=== PATIENT | female | born 1980 | race Caucasian/White ===

== ENCOUNTER 2017-04-11 11:55 | Day surgery (SDC) | payer OTHER ==
[2017-04-11] MEDS ORDERED: LIDOCAINE 1% 300 MG/30 ML SDV ONE (12:45)
[2017-04-11] MEDS ORDERED: LIDOCAINE 1% 300 MG/30 ML SDV MISC ONE (13:15)
--- NOTE | 2017-04-11 14:19 | GPN ---
[f rep st] PROCEDURE NOTE DATE OF PROCEDURE: 04/11/2017 PROCEDURE PERFORMED: Implantable loop recorder. INDICATION: Syncope without prodrome, resulting in facial trauma. CLINICAL HISTORY: The patient is a pleasant 37-year-old female with a history of syncopal episode s uggestive of vasovagal syncope; however, she recently had a syncopal event without prodrome, resulti ng in facial trauma. She subsequently was arranged for an implantable loop recorder. Her workup to date has been unremarkable, including a Holter monitor. DESCRIPTION OF PROCEDURE: After risks and benefits of the procedure were discussed with the patient , consents were obtained. Once consents were obtained, procedure was initiated. Patient was preppe d and draped in sterile fashion after locating 5th intercostal space 2 cm to the left of midline. A alma rosa was made at this surgical site. Patient was prepped and draped in a sterile fashion. 1% lido jose was used to anesthetize the skin locally. Once the appropriate level of anesthesia on the zechariah face of the skin was attained, incision was made with the scalpel provided by the [employer] ble loop recorder kit. Incision was modified with a scalpel blade. The implantable loop recorder t ract was made, and was injected under the skin without complication. Site was closed with Steri-Str ips. Hemostasis was obtained. Device was checked post procedure, demonstrating capture of good QRS complex and P waves. The patient tolerated the procedure well without complaints. CONCLUSION: 1. Successful implantable loop recorder deployment. 2. Patient will follow up in the office in 1 week for wound and device check. /[id number]/MODL
== END 2017-04-11 14:30 | disposition home or self-care (01) ==
LOC: FCATH 11:55
PROVIDERS: ATTEND Internal Medicine Cardiovascular Disease
PROC: 0WH83YZ Insertion of Other Device into Chest Wall, Percutaneous Approach (ICD-10-PCS; principal; 2017-04-11)
DX: R55 Syncope and collapse (principal); I95.9 Hypotension, unspecified; M32.9 Systemic lupus erythematosus, unspecified; M79.7 Fibromyalgia
CPT/HCPCS: C1764

== ENCOUNTER 2018-07-08 | Emergency (ER) | payer OTHER | END 2018-07-08 20:16 | disposition home or self-care (01) ==

== ENCOUNTER 2018-07-11 20:40 | Emergency (ER) | payer OTHER ==
--- NOTE | 2018-07-11 21:15 | EDPHY ---
H & P Time Seen by Provider: 07/11/18 21:12 HPI/ROS: Chief complaint. Chest pain HPI. Patient is a 38-year-old female with 7 day history of chest pain. She was seen in the emergency department on July 08 with 3 days ago. Workup was essentially normal though she did have a elevated white blood cell count at that time. She was then seen by her home day care provider who felt that the patient had costochondritis. He discontinued her nonsteroidal and recommended ibuprofen 800 mg three times daily and increase the patient's prednisone. Initially the pain was isolated somewhat to the sternum but it is bilateral and diffuse anterior chest discomfort. It hurts to breathe and cough. It feels somewhat tight. She has not had fever. No significant shortness of breath. Her chest pain is worse with breathing as opposed to exertion but it is tender to palpation. No unusual leg pain or swelling. Patient has had a syncopal episode in the past and has an implanted monitor though this has not caused any alarms in the last week with her chest pain. She has no history otherwise of heart problems. ROS Constitutional. no fever/chills, no weakness Eyes. no problems with vision ENT. no sore throat, no nasal drainage Cardiovascular. Chest pain Respiratory. no shortness of breath, cough Abdominal. no abdominal pain, no nausea/vomiting, no diarrhea . no problems urinating MS. no calf pain/swelling, no neck/back pain, no joint pain Skin. no rash Lymph. no swollen glands Neuro. no headache, no dizziness, no difficulty walking or with speech Past Medical/Surgical History: Past medical history is significant for lupus, kidney stones, GERD, mitral valve prolapse, fibromyalgia, IBS, pancreatitis, cholecystectomy, implanted monitor Social History: , nonsmoker, no alcohol Smoking Status: Never smoked Physical Exam: General Appearance: Alert pleasant well-developed female mild distress vital signs are stable Eyes: Pupils equal and round no pallor or injection. ENT, Mouth: Mucous membranes are moist. Respiratory: There are no retractions, lungs are clear to auscultation. Cardiovascular: Regular rate and rhythm. Tenderness to palpation of the anterior chest Gastrointestinal: Abdomen is soft and nontender, no masses, bowel sounds normal. Neurological: Awake and alert, sensory and motor exams grossly normal. Skin: Warm and dry, no rashes. Musculoskeletal: Neck is supple nontender. Extremities symmetrical, full range of motion. Psychiatric: Patient is oriented X 3, there is no agitation. Constitutional: Initial Vital Signs Temperature (C) 36.7 C 07/11/18 20:45 Heart Rate 92 07/11/18 20:45 Respiratory Rate 16 07/11/18 20:45 Blood Pressure 127/90 H 07/11/18 20:45 O2 Sat (%) 95 07/11/18 20:45 O2 Delivery Mode Room Air Allergies/Adverse Reactions: Sulfa (Sulfonamide Antibiotics) Allergy (Verified 06/24/16 21:46) Home Medications: Medication Instructions Recorded DIAZEPAM 07/08/18 Levothyroxine 07/08/18 Methotrexate 07/08/18 Midodrine HCl 07/08/18 Phenergan 07/08/18 Plaquenil 200 mg (*) 07/08/18 Prednisone 07/08/18 Ranitidine HCl 07/08/18 Tramadol HCl 07/08/18 Vicodin 5-300 mg Tablet 07/08/18 Voltaren 07/08/18 Wellbutrin 100mg (*) 07/08/18 Hydrocodone/APAP 5/325 [[place] 1 each PO Q4-6PRN PRN #10 tab 07/12/18 5/325 (*)] Medical Decision Making - Diagnostics EKG Interpretation: EKG interpreted by me shows normal sinus rhythm normal interval and axis. QRS is normal there is no significant ST elevation or depression. There is no arrhythmia. The rate is 88 Imaging Results: Imaging Impressions Chest/Thorax CTA 07/11/18 22:45 Impression: 1. No evidence of pulmonary embolism, thoracic aortic dissection, or pneumonia. 2. Mild cardiomegaly without pericardial effusion. Dr. Dowling was notified of these findings by telephone at 11:47 PM on 07/11/2018 Chest x-ray from July 08 reviewed by me and is normal CT angiogram chest reviewed by me and discussed with Radiology shows no evidence of PE, aortic dissection, pneumonia, pericardial effusion Procedures: IV normal saline, monitor ED Course/Re-evaluation: Re-evaluation at 10:40 p.m. Patient is stable. The patient and I discussed laboratory and EKG evaluation. We discussed elevated D-dimer and recommendation for CT angiogram. Indication is elevated D-dimer, chest pain, increased risk of pulmonary embolus with lupus. She expresses understanding and agreement Re-evaluation again at midnight. With the patient and I discussed imaging study results. We discussed treatment plan including criteria for return importance of follow-up further evaluation. She expresses understanding and agreement Differential Diagnosis: This certainly could be costochondritis. I considered acute coronary syndrome, pulmonary embolus, pneumonia, dissection of great vessels. - Data Points Laboratory Results: Laboratory Results 07/11/18 21:47 07/11/18 21:47 07/11/18 07/11/18 07/11/18 21:47 21:47 21:47 WBC RBC Hgb Hct MCV MCH MCHC RDW Plt Count MPV Neut % (Auto) Lymph % (Auto) [place] % (Auto) Eos % (Auto) Baso % (Auto) Nucleat RBC Rel Count Absolute Neuts (auto) Absolute Lymphs (auto) Absolute Monos (auto) Absolute Eos (auto) Absolute Basos (auto) Absolute Nucleated RBC Immature Gran % Immature Gran # ESR PT 13.2 SEC SEC (12.0-15.0) INR 0.98 (0.83-1.16) APTT 24.5 SEC SEC (23.0-38.0) D-Dimer 0.55 ug/mLFEU H ug/mLFEU (0.00-0.50) Sodium 136 mEq/L mEq/L (135-145) Potassium 5.4 mEq/L H mEq/L (3.3-5.0) Chloride 104 mEq/L mEq/L (97-110) Carbon Dioxide 25 mEq/l mEq/l (22-31) Anion Gap 7 mEq/L L mEq/L (8-16) BUN 16 mg/dL mg/dL (7-23) Creatinine 0.8 mg/dL mg/dL (0.6-1.0) Estimated GFR > 60 Glucose 104 mg/dL H mg/dL (70-100) Calcium 9.7 mg/dL mg/dL (8.5-10.4) POC Troponin I 0.00 ng/mL ng/mL (0.00-0.08) Lipase 177 IU/L IU/L (23-300) Specimen Hemolysis 186 07/11/18 21:47 WBC 11.83 10^3/uL H 10^3/uL (3.80-9.50) RBC 4.35 10^6/uL 10^6/uL (4.18-5.33) Hgb 13.7 g/dL g/dL (12.6-16.3) Hct 40.6 % % (38.0-47.0) MCV 93.3 fL fL (81.5-99.8) MCH 31.5 pg pg (27.9-34.1) MCHC 33.7 g/dL g/dL (32.4-36.7) RDW 12.7 % % (11.5-15.2) Plt Count 254 10^3/uL 10^3/uL (150-400) MPV 11.3 fL fL (8.7-11.7) Neut % (Auto) 81.8 % H % (39.3-74.2) Lymph % (Auto) 11.5 % L % (15.0-45.0) [place] % (Auto) 6.1 % % (4.5-13.0) Eos % (Auto) 0.1 % L % (0.6-7.6) Baso % (Auto) 0.2 % L % (0.3-1.7) Nucleat RBC Rel Count 0.0 % % (0.0-0.2) Absolute Neuts (auto) 9.69 10^3/uL H 10^3/uL (1.70-6.50) Absolute Lymphs (auto) 1.36 10^3/uL 10^3/uL (1.00-3.00) Absolute Monos (auto) 0.72 10^3/uL 10^3/uL (0.30-0.80) Absolute Eos (auto) 0.01 10^3/uL L 10^3/uL (0.03-0.40) Absolute Basos (auto) 0.02 10^3/uL 10^3/uL (0.02-0.10) Absolute Nucleated RBC 0.00 10^3/uL 10^3/uL (0-0.01) Immature Gran % 0.3 % % (0.0-1.1) Immature Gran # 0.03 10^3/uL 10^3/uL (0.00-0.10) ESR 3 MM/HR MM/HR (0-20) PT INR APTT D-Dimer Sodium Potassium Chloride Carbon Dioxide Anion Gap BUN Creatinine Estimated GFR Glucose Calcium POC Troponin I Lipase Specimen Hemolysis Medications Given: Discontinued Medications Sodium Chloride (Ns) 1,000 mls @ 0 mls/hr IV EDNOW ONE; Wide Open PRN Reason: Protocol Stop: 07/11/18 22:46 Last Admin: 07/11/18 22:58 Dose: 1,000 mls Point of Care Test Results: Chemistry 07/11/18 21:47 POC Troponin I 0.00 ng/mL ng/mL (0.00-0.08) Departure - Departure Disposition: Home, Routine, Self-Care Clinical Impression: Chest pain Qualifiers: Chest pain type: pleurodynia Qualified Code(s): R07.81 - Pleurodynia Condition: Good Instructions: Chest Pain (ED), Costochondritis (ED) Additional Instructions: Continue regular medications including the ibuprofen and increased prednisone. Hydrocodone in addition for pain if necessary using 1 pill every 4-6 hours for pain. Return for worsening symptoms. Keep follow-up appointment with Rheumatology next week. Dr. Francisco in 1-2 days for continuing symptoms Referrals: Raven Francisco MD [Primary Care Provider] - 2-3 days, if not improved Prescriptions: Hydrocodone/APAP 5/325 [[place] 5/325 (*)] 1 each PO Q4-6PRN PRN #10 tab PRN Reason: Pain, Moderate
[2018-07-11 21:59] LABS: PLATELET COUNT 254 10^3/uL (150-400)
[2018-07-11 22:07] LABS: INR 0.98 (0.83-1.16); PROTIME(PATIENT) 13.2 SEC (12.0-15.0)
[2018-07-11] MEDS ORDERED: NS 1,000 ML IV ONE (22:45)
[2018-07-11] MEDS ORDERED: IOPAMIDOL (ISOVUE 370) 100 ML BTL IV ONE (22:57)
[2018-07-12] MEDS ORDERED: HYDROCOD/APAP 5/325 PREPACK#6 BTL TAKEHOME ONE (00:08)
[2018-07-12 01:40] VITALS: BP 115/76
== END 2018-07-12 01:40 | disposition home or self-care (01) ==
DX: R07.81 Pleurodynia (principal); E86.9 Volume depletion, unspecified; M32.9 Systemic lupus erythematosus, unspecified; K21.9 Gastro-esophageal reflux disease without esophagitis; Z86.79 Personal history of other diseases of the circulatory system
CPT/HCPCS: 84484-PO; Q9967

== ENCOUNTER → 2018-09-20 | Outpatient (CLI) | payer OTHER | LOC: BMCIMAGING 13:23 | PROVIDERS: ATTEND Family Medicine | DX: M79.671 Pain in right foot (principal); M84.88 Other disorders of continuity of bone, other site; R93.7 Abnormal findings on diagnostic imaging of other parts of musculoskeletal system ==